=== PATIENT | female | born 1945 | race Caucasian/White ===

== ENCOUNTER 2018-04-22 08:21 | Outpatient (CLI) | payer MEDICARE, OTHER, SELFPAY ==
[2018-04-22 10:19] LABS: Cholesterol 206 mg/dL (50-200); HDL Cholesterol 49 mg/dL (40-60); LDL CHOLESTEROL 126 mg/dL (<100); Triglyceride 155 mg/dL (30-150)
[2018-04-23 14:09] LABS: Hepatitis C Ab w Rflx HCV PCR Negative (NEGAT)
== END 2018-04-22 08:41 ==
PROVIDERS: PCP Internal Medicine; Visit Provider Internal Medicine
DX: I10 Essential (primary) hypertension (principal); Z11.59 Encounter for screening for other viral diseases; Z13.6 Encounter for screening for cardiovascular disorders
CPT/HCPCS: 36415; 80061; 83721; 86803